=== PATIENT | male | born 2000 | race Two or more races ===

== ENCOUNTER 2018-05-13 06:22 | Emergency (ER) | payer OTHER ==
[~2018-05-13] VITALS: Ht 170.2 cm; Wt 61.2 kg
[2018-05-13 06:28] VITALS: Ht 170.2 cm; Wt 61.2 kg
[2018-05-13 07:34] LABS: CALCIUM 8.8 mg/dL (8.5-10.1); CARBON DIOXIDE 23.7 mmol/L (21-32); CHLORIDE SERUM 104 mmol/L (98-107); CREATININE SERUM 0.9 mg/dL (0.7-1.3); GFR1 > 60 mL/min; GLUCOSE SERUM 133 mg/dL (74-106); POTASSIUM SERUM 3.5 mmol/L (3.5-5.1); SODIUM SERUM 138 mmol/L (136-145)
[2018-05-13 07:36] LABS: BASOPHIL % 0.2 % (0-2); PLATELET COUNT 148 x10^3mcL (130-400); RED CELL DISTRIBUTION WIDTH 12.5 % (11.5-14.5)
[2018-05-13 07:38] LABS: ALBUMIN 3.9 g/dL (3.4-5.0); ALKALINE PHOSPHATASE 104 U/L (46-116); ALT/SGPT 26 U/L (16-63); AST/SGOT 17 U/L (15-37); LIPASE 118 IU/L (73-393); TOTAL PROTEIN, SERUM 7.5 g/dL (6.4-8.2)
[2018-05-13 09:11] LABS: AMPHETAMINE QUAL UR NONE DETECTED (See below)
[2018-05-13 10:47] VITALS: BP 94/53
== END 2018-05-13 10:47 | disposition home or self-care (01) ==
LOC: ED 06:22
PROVIDERS: Emergency Medicine
DX: D72.829 Elevated white blood cell count, unspecified (principal); R10.12 Left upper quadrant pain
CPT/HCPCS: 83880; J1885; J3490; Q0092